=== PATIENT | male | born 1950 | race Caucasian/White ===

== ENCOUNTER 2024-04-27 06:57 | Day surgery (SDC) | payer MEDICARE, MEDICAID ==
[2024-04-22 14:09] LABS: BASOPHILS # (AUTO) 0.1 X10'3 (0-0.2); BASOPHILS % (AUTO) 1.2 % (0-1); EOSINOPHILS # (AUTO) 0.4 X10'3 (0-0.9); EOSINOPHILS % (AUTO) 5.2 % (0-6); LYMPHOCYTES # (AUTO) 2.1 X10'3 (1.1-4.8); LYMPHOCYTES % (AUTO) 25.1 % (21-51); MEAN CORPUSCULAR HEMOGLOBIN 31.5 PG (27.0-31.0); MEAN CORPUSCULAR HGB CONC 33.5 g/dL (33.0-36.5); MEAN PLATELET VOLUME 9.2 FL (7.4-10.4); MONOCYTES # (AUTO) 0.7 X10'3 (0-0.9); MONOCYTES % (AUTO) 8.3 % (2-12); NEUTROPHILS # (AUTO) 5.1 X10'3 (1.8-7.7); NEUTROPHILS % (AUTO) 60.2 % (42-75); PRE OP HEMATOCRIT 49.6 % (42.0-52.0); PRE OP HEMOGLOBIN 16.6 g/dL (14.0-17.9); PRE OP PLATELET COUNT 200 X10'3 (140-440); PRE OP WHITE BLOOD COUNT 8.5 10'3 (4.8-10.8); RED BLOOD COUNT 5.28 X10'6 (4.70-6.10); RED CELL DISTRIBUTION WIDTH 14.2 % (11.5-14.5)
[2024-04-22 14:25] LABS: ALBUMIN 4.3 G/DL (3.4-5.0); ALBUMIN/GLOBULIN RATIO 1.1 (1.1-1.5); ALKALINE PHOSPHATASE 83 IU/L (46-116); BLOOD UREA NITROGEN 12 MG/DL (7-18); BUN/CREATININE RATIO 11.3 (10.0-20.0); CALCIUM 9.7 MG/DL (8.5-10.1); CHLORIDE 103 MMOL/L (99-107); CREATININE 1.06 MG/DL (0.60-1.10); PRE OP ALT 17 U/L (30-65); PRE OP ANION GAP 7 (8-16); PRE OP AST 8 U/L (10-37); PRE OP BILIRUB, TOTAL 0.8 MG/DL (0.0-1.0); PRE OP GLUCOSE 100 MG/DL (70-104); PRE OP POTASSIUM 4.4 MMOL/L (3.4-5.1); PRE OP SODIUM 139 MMOL/L (135-145); TOTAL CARBON DIOXIDE 28.8 MMOL/L (24-32); TOTAL PROTEIN 8.1 G/DL (6.4-8.2); eGFR 68 ML/MIN
[2024-04-27] VITALS (9 sets, daily range): BP systolic 112–190; BP diastolic 58–110; PULSE 94–103; RESP 10–20; TEMP 98.4; O2SAT 89–97
[~2024-04-27] VITALS: Ht 172.7 cm; Wt 90.7 kg
[2024-04-27] MEDS: ceFAZolin 2gm in dextrose, iso 50 ML IV ONE (06:50)
[~2024-04-27 06:57] MED LIST: BUPIVAcaine 2.5mg/ml inj 50ml vial (contains preservative) ONE; LIDOcaine 1% 30ml preserv. free vial ONE; NO HOME MEDS; ringers solution, lacted 1,000 ML IV SCH
[2024-04-27] MEDS: famotidine 20mg tablet PO ONE (07:37)
[2024-04-27] MEDS: tamsulosin 0.4mg capsule PO ONE (07:37)
[2024-04-27] MEDS ORDERED: midazolam 1 mg/ML 2ml injection ONE (09:02)
[2024-04-27] MEDS ORDERED: fentaNYL/PF 50MCG/1 ML 2ML syringe ONE (09:02)
[2024-04-27] MEDS ORDERED: propofol inj 20 ML IV ONE (09:03)
[2024-04-27] MEDS: BUPIVAcaine 2.5mg/ml inj 50ml vial (contains preservative) SQ ONE (09:15)
[2024-04-27] MEDS ORDERED: ringers solution, lacted 1,000 ML IV SCH (09:40)
[2024-04-27] MEDS ORDERED: morphine 4 MG/ML inj SYRINge IV PRN (09:40)
[2024-04-27] MEDS ORDERED: morphine 2 MG/ML inj. syringe IV PRN (09:40)
[2024-04-27] MEDS ORDERED: ondansetron/PF 4mg/2ml inj IV PRN (09:40)
[2024-04-27] MEDS ORDERED: meperidine/PF 25mg/ml syringe IV PRN ×3 (09:40)
[2024-04-27] MEDS ORDERED: proCHLORperazine 10 MG/2 ml inj IV PRN (09:40)
[2024-04-27] MEDS ORDERED: labetalol 20mg/4ml (5mg/ml) syringe IV ONE (10:14)
[2024-04-27] MEDS ORDERED: rocuronium 10mg/ml inj IV ONE (10:14)
[2024-04-27] MEDS ORDERED: neostigmine methylsulfate 1 MG/ML 10ml vial ONE (10:14)
[2024-04-27] MEDS ORDERED: glycopyrrolate 0.2mg/ml inj ONE (10:14)
[2024-04-27] MEDS: HYDROcodone/acetaminophen 5mg/325mg tablet PO PRN (11:37)
== END 2024-04-27 12:00 | disposition home or self-care (01) ==
LOC: PRE-OP 06:57
PROVIDERS: ATTEND Surgery
DX: K40.90 Unilateral inguinal hernia, without obstruction or gangrene, not specified as recurrent (principal); I25.2 Old myocardial infarction
CPT/HCPCS: 36415; 49650; 80053; 82948; 85025; 93005; A4215; A4618; C1781; J0690; J2003; J2250; J2704; J2710; J3010; J3490; J7030; J7120; Z7506; Z7508; Z7512; Z7610